=== PATIENT | female | born 1995 | race Caucasian/White ===

== ENCOUNTER 2018-03-18 08:55 | Emergency (ER) | payer MEDICAID, OTHER ==
[2018-03-18 09:03] VITALS: RESP 18; TEMP 97.8
--- NOTE | 2018-03-18 09:43 | ED PDOC ---
HPI: Abdomen Time Seen by Provider: 03/18/18 09:36 Chief Complaint (Nursing): Abdominal Pain History Per: Patient Onset/Duration Of Symptoms: Days (2) Severity: Moderate Pain Scale Rating Of: 4 Location Of Pain/Discomfort: RLQ, LLQ Quality Of Discomfort: Cramping Associated Symptoms: Nausea, Vomiting, Diarrhea. denies: Fever, Urinary Symptoms Exacerbating Factors: None Alleviating Factors: None Additional Complaint(s): Lower abd pain assoc with NVD since yesterday. Unable to tolerate PO. Denies fever or bloody stools. Denies urinary sxs. Past Medical History Vital Signs: Last Vital Signs Temp 97.8 F 03/18/18 09:03 Pulse 65 03/18/18 09:03 Resp 18 03/18/18 09:03 BP 112/69 03/18/18 09:03 Pulse Ox 98 03/18/18 09:03 - Medical History PMH: Anemia, Asthma - Surgical History Surgical History: - Family History Family History: States: Unknown Family Hx - Home Medications Home Medications: Ambulatory Orders Medication Instructions Recorded Dicyclomine [Bentyl] 20 mg PO BID PRN #30 tab 01/26/14 Esomeprazole Magnesium [Nexium] 40 mg PO DAILY #14 ecc 01/26/14 Acetaminophen with Codeine 1 tab PO Q6 PRN #6 tab 03/28/14 [Tylenol with Codeine No. 3 300 mg-30 mg] Dicyclomine [Dicyclomine HCl] 10 mg PO TID PRN #10 cap 04/08/16 Ondansetron [Zofran] 4 mg PO Q6H PRN #10 tab 04/08/16 Sulfamethoxazole/Trimethoprim 1 tab PO BID #20 tab 03/18/18 [Bactrim DS 800 mg-160 mg] - Allergies Allergies/Adverse Reactions: Allergies Allergy/AdvReac Type Severity Reaction Status Date / Time No Known Allergies Allergy Verified 08/19/14 16:28 Review of Systems ROS Statement: Except As Marked, All Systems Reviewed And Found Negative Constitutional: Negative for: Fever Gastrointestinal: Positive for: Nausea, Vomiting, Abdominal Pain, Diarrhea Genitourinary Female: Negative for: Dysuria, Frequency Physical Exam - Reviewed Nursing Documentation Reviewed: Yes Vital Signs Reviewed: Yes - Physical Exam Appears: Positive for: Non-toxic, No Acute Distress Head Exam: Positive for: ATRAUMATIC, NORMAL INSPECTION, NORMOCEPHALIC Skin: Positive for: Normal Color, Warm, DRY Eye Exam: Positive for: EOMI, Normal appearance, PERRL ENT: Positive for: Normal ENT Inspection Neck: Positive for: Normal, Painless ROM Cardiovascular/Chest: Positive for: Regular Rate, Rhythm Respiratory: Positive for: CNT, Normal Breath Sounds Gastrointestinal/Abdominal: Positive for: Soft, Tenderness (Lower quads bilat.). Negative for: Guarding, Rebound Back: Positive for: Normal Inspection. Negative for: L CVA Tenderness, R CVA Tenderness Extremity: Positive for: Normal ROM Neurologic/Psych: Positive for: Alert, Oriented - Laboratory Results Result Diagrams: 03/18/18 10:27 03/18/18 10:27 - ECG O2 Sat by Pulse Oximetry: 98 Medical Decision Making Medical Decision Making: Based on CT findings, recommended pelvic exam to pt. Pt declines. Denies any vaginal pain or swelling or discharge. Disposition - Clinical Impression Clinical Impression: UTI (urinary tract infection) - Patient ED Disposition Is Patient to be Admitted: No Counseled Patient/Family Regarding: Studies Performed, Diagnosis, Need For Followup, Rx Given - Disposition Referrals: [facility] [Outside] [facility] [Outside[facility] Disposition: Routine/Home Disposition Time: 14:08 Condition: FAIR Prescriptions: Sulfamethoxazole/Trimethoprim [Bactrim DS 800 mg-160 mg] 1 tab PO BID #20 tab Instructions: Urinary Tract Infections in Adults Forms: [facility] ([place])
[2018-03-18] MEDS: Sodium Chloride 0.9% 1,000 ML IV STA (10:28)
[2018-03-18 11:45] LABS: BASO % 0.7 % (0.0-2.0); EOS # 0.2 K/uL (0.0-0.7); EOS % 6.3 % (0.0-4.0); HEMOGLOBIN 12.3 g/dL (12.0-16.0); LYMPH # 1.4 K/uL (1.0-4.3); LYMPH % 35.5 % (20.0-40.0); MEAN CELL VOLUME 89.9 fl (81.0-99.0); MEAN CORPUSCULAR HEMOGLOBIN 31.4 pg (27.0-31.0); MEAN CORPUSCULAR HGB CONC 34.9 g/dL (33.0-37.0); MEAN PLATELET VOLUME 9.5 fl (7.2-11.7); MONO # 0.5 K/uL (0.0-0.8); NEUT # 1.7 K/uL (1.8-7.0); NEUT % 45.5 % (50.0-75.0); NRBC % 0.1 % (0.0-0.0); RBC 3.92 Mil/uL (3.80-5.20); RED CELL DISTRIBUTION WIDTH 12.4 % (11.5-14.5); WHITE BLOOD COUNT 3.8 K/uL (4.8-10.8)
[2018-03-18 12:01] LABS: ALB/GLOB RATIO 1.2 (1.0-2.1); ALT/SGPT 22 U/L (9-52); AST/SGOT 17 U/L (14-36); BLOOD UREA NITROGEN 12 mg/dl (7-17); GFR NON-AFRICAN AMERICAN > 60
[2018-03-18] MEDS ORDERED: Iohexol 300 100 ML IJ ONE (12:12)
[2018-03-18] MEDS ORDERED: Sodium Chloride 0.9% 50 ML IV ONE (12:12)
[2018-03-18] MEDS ORDERED: Potassium Chloride 20 mEq ER Tab PO ONE (12:20)
--- NOTE | 2018-03-18 12:53 | CT ---
Date of service: 03/18/2018 PROCEDURE: CT Abdomen and Pelvis with contrast HISTORY: Abd pain COMPARISON: None. TECHNIQUE: Contrast dose: 95 mL Omnipaque 300 Radiation dose: Total exam DLP = 0.0 mGy-cm. This CT exam was performed using one or more of the following dose reduction techniques: Automated exposure control, adjustment of the mA and/or kV according to patient size, and/or use of iterative reconstruction technique. FINDINGS: LOWER THORAX: Unremarkable. LIVER: Unremarkable. No gross lesion or ductal dilatation. GALLBLADDER AND BILE DUCTS: Unremarkable. PANCREAS: Unremarkable. No gross lesion or ductal dilatation. SPLEEN: Unremarkable. ADRENALS: Unremarkable. No mass. KIDNEYS AND URETERS: Unremarkable. No hydronephrosis. No solid mass. VASCULATURE: Unremarkable. No aortic aneurysm. No aortic atherosclerotic calcification or mural plaque present. BOWEL: Unremarkable. No obstruction. No gross mural thickening. APPENDIX: Normal appendix. PERITONEUM: Unremarkable. No free fluid. No free air. LYMPH NODES: Unremarkable. No enlarged lymph nodes. BLADDER: Unremarkable. REPRODUCTIVE: Normal uterus. The cervix is somewhat prominent. The vagina shows circumferential mural thickening of uncertain significance. Recommend direct visual inspection. BONES: No acute fracture. OTHER FINDINGS: None. IMPRESSION: Circumferential mural thickening of the vagina and prominence of the cervix. Uncertain significance. Recommend correlation with direct examination. Nonspecific trace fluid in the pelvis. No other significant abnormality identified.
[2018-03-18 15:16] VITALS: BP 120/70; PULSE 68; O2SAT 99
== END 2018-03-18 14:12 | disposition home or self-care (01) ==
LOC: H.ER 08:55
DX: N39.0 Urinary tract infection, site not specified (principal)
CPT/HCPCS: 74177; 80053; 81025; 85025; 96374; 96375; 99284; J2405; J7030; Q9967

== ENCOUNTER 2018-09-07 14:35 | Emergency (ER) | payer OTHER ==
[2018-09-07 14:55] VITALS: BP 117/64; PULSE 84; RESP 24; TEMP 98.4; O2SAT 100
--- NOTE | 2018-09-07 15:16 | ED PDOC ---
HPI: Trauma/Fall - HPI Time Seen by Provider: 09/07/18 15:04 Chief Complaint (Nursing): Trauma Chief Complaint (Provider): Trauma History Per: Patient History/Exam Limitations: no limitations Onset/Duration Of Symptoms: Hrs Injury Occurred (Timing): Hours Ago: Additional Complaint(s): 23 y/o female states that at approximately 11:07 AM while at work a portion of the ceiling on top of her fell down and struck the top of her head. Patient states she did not loss conscious but is currently reporting of pain at the site of impact since the incident. Otherwise, patient denies loss of consciousness, nausea, vomiting, previous TBI, history of seizures, neck pain, numbness, tingling and other injuries. Patient notes of having taken Advil immediately after it occurred. PMD: [place] Past Medical History Reviewed: Historical Data, Nursing Documentation, Vital Signs Vital Signs: Last Vital Signs Temp 98.4 F 09/07/18 14:50 Pulse 84 09/07/18 14:50 Resp 24 09/07/18 14:50 BP 117/64 09/07/18 14:50 Pulse Ox 100 09/07/18 14:50 - Medical History PMH: Anemia, Asthma - Surgical History Surgical History: - Family History Family History: States: Unknown Family Hx - Home Medications Home Medications: Ambulatory Orders Medication Instructions Recorded Dicyclomine [Bentyl] 20 mg PO BID PRN #30 tab 01/26/14 Esomeprazole Magnesium [Nexium] 40 mg PO DAILY #14 ecc 01/26/14 Acetaminophen with Codeine 1 tab PO Q6 PRN #6 tab 03/28/14 [Tylenol with Codeine No. 3 300 mg-30 mg] Dicyclomine [Dicyclomine HCl] 10 mg PO TID PRN #10 cap 04/08/16 Ondansetron [Zofran] 4 mg PO Q6H PRN #10 tab 04/08/16 Sulfamethoxazole/Trimethoprim 1 tab PO BID #20 tab 03/18/18 [Bactrim DS 800 mg-160 mg] - Allergies Allergies/Adverse Reactions: Allergies Allergy/AdvReac Type Severity Reaction Status Date / Time No Known Allergies Allergy Verified 08/19/14 16:28 Review of Systems ROS Statement: Except As Marked, All Systems Reviewed And Found Negative Gastrointestinal: Negative for: Nausea, Vomiting Musculoskeletal: Positive for: Other (pain to the top of the head). Negative for: Neck Pain Neurological: Negative for: Numbness Physical Exam - Reviewed Nursing Documentation Reviewed: Yes Vital Signs Reviewed: Yes - Physical Exam Appears: Positive for: No Acute Distress Head Exam: Positive for: ATRAUMATIC, NORMAL INSPECTION (no hematoma noted), NORMOCEPHALIC Skin: Positive for: Normal Color, Warm, Dry Eye Exam: Positive for: Normal appearance, EOMI, PERRL ENT: Positive for: Normal ENT Inspection Neck: Positive for: Normal Neurological/Psych: Positive for: Awake, Alert, Symmetric/Intact Strength (equal car pusher strength bilaterally), Oriented (x3), Gait (steady and unassisted), Other (seen speaking on cell phone) - ECG O2 Sat by Pulse Oximetry: 100 (RA) Pulse Ox Interpretation: Normal - Progress Re-evaluation Time: 16:20 (Pt. states headache has improved and that she had a meal in ED without any nausea. Repeat neuro exam is non-focal. ) Condition: Re-examined, Improved Medical Decision Making Medical Decision Making: Time: 1509 Plan: -- CT Head w/o Contrast -- ED Urine -- Tylenol 975 mg PO Time: 1551 PROCEDURE: CT HEAD WITHOUT CONTRAST. HISTORY: trauma COMPARISON: None available. TECHNIQUE: Axial computed tomography images were obtained through the head/brain without intravenous contrast. Radiation dose: Total exam DLP = 710.08 mGy-cm. This CT exam was performed using one or more of the following dose reduction techniques: Automated exposure control, adjustment of the mA and/or kV according to patient size, and/or use of iterative reconstruction technique. FINDINGS: HEMORRHAGE: No intracranial hemorrhage. BRAIN: No mass effect or edema. No atrophy or chronic microvascular ischemic changes. VENTRICLES: Unremarkable. No hydrocephalus. CALVARIUM: Unremarkable. PARANASAL SINUSES: Unremarkable as visualized. No significant inflammatory changes. MASTOID AIR CELLS: Unremarkable as visualized. No inflammatory changes. OTHER FINDINGS: None. IMPRESSION: No acute intracranial pathology. Scribe Attestation: Documented by Laverne Ponce, acting as a scribe Deion Linder PA-C. Provider Scribe Attestation: All medical record entries made by the Scribe were at my direction and personally dictated by me. I have reviewed the chart and agree that the record accurately reflects my personal performance of the history, physical exam, medical decision making, and the department course for this patient. I have also personally directed, reviewed, and agree with the discharge instructions and disposition. Disposition - Clinical Impression Clinical Impression: Head injury - Patient ED Disposition Is Patient to be Admitted: No - Disposition Referrals: [facility] [Outside] Disposition: Routine/Home Disposition Time: 16:21 Condition: IMPROVED Additional Instructions: FOLLOW UP WITH YOUR DOCTOR FOR FURTHER EVALUATION RETURN TO ED IMMEDIATELY IF SYMPTOMS WORSEN CHARAN PEÑA, thank you for letting us take care of you today. Your provider was Segun Meng MD and you were treated for HEAD INJURY. The emergency medical care you received today was directed at your acute symptoms. If you were prescribed any medication, please fill it and take as directed. It may take several days for your symptoms to resolve. Return to the Emergency Department if your symptoms worsen, do not improve, or if you have any other problems. Please contact your doctor or call one of the physicians/clinics you have been referred to that are listed on the Patient Visit Information form that is included in your discharge packet. Bring any paperwork you were given at discharge with you along with any medications you are taking to your follow up visit. Our treatment cannot replace ongoing medical care by a primary care provider outside of the emergency department. Thank you for allowing the [facility] team to be part of your care today. If you had an X-Ray or CT scan: A Radiologist will review the ED reading if any change in treatment is needed we will contact you. If you had a blood, urine, or wound culture: It will take several days for the results, if any change in treatment is needed we will contact you. If you had an STI test: It will take 48 hours for the results. Please call after 1 week if you have not heard back. Instructions: Closed Head Injury (DC) Forms: [facility] (Vietnamese), [facility] ED School/Work Excuse
--- NOTE | 2018-09-07 16:07 | CT ---
Date of service: 09/07/2018 PROCEDURE: CT HEAD WITHOUT CONTRAST. HISTORY: trauma COMPARISON: None available. TECHNIQUE: Axial computed tomography images were obtained through the head/brain without intravenous contrast. Radiation dose: Total exam DLP = 710.08 mGy-cm. This CT exam was performed using one or more of the following dose reduction techniques: Automated exposure control, adjustment of the mA and/or kV according to patient size, and/or use of iterative reconstruction technique. FINDINGS: HEMORRHAGE: No intracranial hemorrhage. BRAIN: No mass effect or edema. No atrophy or chronic microvascular ischemic changes. VENTRICLES: Unremarkable. No hydrocephalus. CALVARIUM: Unremarkable. PARANASAL SINUSES: Unremarkable as visualized. No significant inflammatory changes. MASTOID AIR CELLS: Unremarkable as visualized. No inflammatory changes. OTHER FINDINGS: None. IMPRESSION: No acute intracranial pathology.
== END 2018-09-07 16:35 | disposition home or self-care (01) ==
LOC: H.ER 14:35
DX: S09.90XA Unspecified injury of head, initial encounter (principal); W22.8XXA Striking against or struck by other objects, initial encounter; Y99.0 Civilian activity done for income or pay